=== PATIENT | male | born 1960 | race American Indian/Alaskan Native ===

== ENCOUNTER 2016-05-07 00:33 | Emergency (ER) | payer OTHER ==
[2016-05-07 01:29] LABS: Basophils % (Auto) 0.6 % (0.0-1.8); Eosinophils % (Auto) 0.1 % (0.0-4.3); Hematocrit 44.4 % (35.5-45.6); Hemoglobin 14.9 gm/dl (11.8-15.2); Mean Corpuscular HGB Conc 34 % (32-34); Mean Corpuscular Hemoglobin 31 pg (28-32); Mean Corpuscular Volume 92 fl (84-94); Platelet Count 169 K/mm3 (140-440); Red Blood Count 4.81 M/mm3 (3.65-5.03); Red Cell Distribution Width 13.5 % (13.2-15.2); White Blood Count 8.8 K/mm3 (4.5-11.0)
[2016-05-07 01:41] LABS: Anion Gap 19 mmol/L; Blood Urea Nitrogen 14 mg/dL (9-20); Calcium 8.6 mg/dL (8.4-10.2); Carbon Dioxide 22 mmol/L (22-30); Glucose 136 mg/dL (75-100); Sodium 140 mmol/L (137-145)
[2016-05-07 02:04] LABS: INR 1.1 (0.87-1.13)
[2016-05-07 02:05] LABS: Partial Thromboplastin Time 28.3 Sec. (24.2-36.6)
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
[2016-05-07 08:13] VITALS: BP 144/97
[2016-05-07 09:41] LABS: Bilirubin,Urine NEG (Negative); Blood,Urine NEG (Negative); Ketones,Urine NEG (Negative); Leukocyte Esterase,Urine NEG (Negative); Mucus,Urine FEW /HPF; Nitrite,Urine NEG (Negative); Protein,Urine <15 mg/dL mg/dL (Negative); RBC,Urine < 1.0 /HPF (0.0-6.0); Urobilinogen,Urine < 2.0 mg/dL (<2.0)
[2016-05-07] MEDS ORDERED: TRIMOX PO ONE (10:31)
[2016-05-07] MEDS ORDERED: MOTRIN PO ONE (10:31)
--- NOTE | 2016-05-07 10:32 | Emergency Department Report ---
ED GI Bleed HPI - General Chief complaint: Upper Respiratory Infection Stated complaint: FLU LIKE SYMPTOMS Time Seen by Provider: 05/07/16 10:12 Source: patient Mode of arrival: Ambulatory Limitations: No Limitations - History of Present Illness Severity scale (0 -10): 0 - Related Data Allergies Allergy/AdvReac Type Severity Reaction Status Date / Time No Known Allergies Allergy Verified 05/07/16 00:57 ED Review of Systems ROS: Stated complaint: FLU LIKE SYMPTOMS Other details as noted in HPI ED Past Medical Hx - Past Medical History Previous Medical History?: Yes Hx CVA: Yes Additional medical history: brain anerusim - Surgical History Past Surgical History?: No ED Physical Exam - General Limitations: No Limitations ED Course Vital Signs 05/07/16 05/07/16 05/07/16 00:53 08:00 08:10 Temperature 98.4 F Pulse Rate 92 H Respiratory 20 Rate Blood Pressure 134/94 144/97 Blood Pressure [Left] O2 Sat by Pulse 99 100 98 Oximetry 05/07/16 05/07/16 05/07/16 08:12 08:15 08:20 Temperature 98.9 F Pulse Rate 87 Respiratory 16 16 Rate Blood Pressure 144/97 Blood Pressure 144/97 [Left] O2 Sat by Pulse 100 100 100 Oximetry 05/07/16 05/07/16 05/07/16 08:30 08:40 08:50 Temperature Pulse Rate Respiratory Rate Blood Pressure 144/97 144/97 144/97 Blood Pressure [Left] O2 Sat by Pulse 100 99 98 Oximetry 05/07/16 09:00 Temperature Pulse Rate Respiratory Rate Blood Pressure 144/97 Blood Pressure [Left] O2 Sat by Pulse 98 Oximetry ED Medical Decision Making - Lab Data Result diagrams: 05/07/16 01:15 05/07/16 01:15 Critical care attestation.: If time is entered above; I have spent that time in minutes in the direct care of this critically ill patient, excluding procedure time. ED Disposition Condition: Stable Referrals: PRIMARY CARE, [Primary Care Provider] - 3-5 Days
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
--- NOTE | 2016-05-07 11:40 | XRay Report ---
CHEST 2 VIEWS INDICATION: Cough. COMPARISON: None similar. FINDINGS: PA and lateral chest radiographs demonstrate normal cardiomediastinal silhouette. Clear lungs. Intact bones. CONCLUSION: No acute disease in the chest. Thank you for the opportunity to participate in this patient's care.
== END 2016-05-07 12:08 | disposition home or self-care (01) ==
LOC: ED 00:33
DX: J32.9 Chronic sinusitis, unspecified (principal); I63.9 Cerebral infarction, unspecified
CPT/HCPCS: 36415; 70450; 71020; 80048; 81001; 84484; 85025; 85610; 85670; 85730; 93005; 93010

== ENCOUNTER 2019-05-12 17:29 | Emergency (ER) | payer OTHER ==
[2019-05-12 17:35] VITALS: BP 154/109
--- NOTE | 2019-05-12 20:30 | Event Note ---
ED Screening Note Date of service: 05/12/19 Time: 20:26 ED Screening Note: 58 y o male presents with prod cough iwth chest pain This initial assessment/diagnostic orders/clinical plan/treatment(s) is/are subject to change based on patients health status, clinical progression and re-assessment by fellow clinical providers in the ED. Further treatment and workup at subsequent clinical providers discretion. Patient/guardian urged not to elope from the ED as their condition may be serious if not clinically assessed and managed. Initial orders include: xcxacc eval
--- NOTE | 2019-05-12 21:47 | XRay Report ---
CHEST 2 VIEWS INDICATION / CLINICAL INFORMATION: pain. COMPARISON: None available. FINDINGS: SUPPORT DEVICES: None. HEART / MEDIASTINUM: No significant abnormality. LUNGS / PLEURA: No significant pulmonary or pleural abnormality. No pneumothorax. ADDITIONAL FINDINGS: No significant additional findings. IMPRESSION: 1. No acute findings. Signer Name: Anastasia Hwang MD Signed: 05/12/2019 9:43 PM Workstation Name: [id number]
[2019-05-12] MEDS ORDERED: predniSONE 20 MG TAB PO ONE (21:52)
--- NOTE | 2019-05-12 21:56 | Emergency Department Report ---
- General Chief Complaint: Upper Respiratory Infection Stated Complaint: COLD SYMPTOMS Source: patient Mode of arrival: Ambulatory Limitations: No Limitations - History of Present Illness Initial Comments: Patient is a 58-year-old -Stateless male with no past medical history presents to the ED with complaint of acute onset persistent nasal and sinus congestion, frontal sinus pressure and headache, cough with yellow phlegm, diffuse body aches and pains for the last 5 days worse in the last 2 days. Patient denies dizziness, chest pain, shortness of breath, abdominal pain, sore throat, nausea, vomiting, fever, chills, dysuria, urinary frequency and urgency or change in vision and syncope. MD Complaint: cough, rhinorrhea, nasal congestion, sinus pain -: Sudden, days(s) (5) Severity: moderate, severe Severity scale (0 -10): 6 Quality: sharp, aching Consistency: constant Improves With: nothing Context: sick contacts Associated Symptoms: denies other symptoms, myalgias, headache, rhinorrhea, nasal congestion, cough. denies: fever, chills, diaphoresis, sore throat, stiff neck, chest pain, shortness of breath, abdominal pain, vomiting, diarrhea, dysuria, rash, weight loss, epistaxis, hoarseness, ear pain Treatments Prior to Arrival: none - Related Data Previous Rx's Medication Instructions Recorded Last Taken Type Amoxicillin [Trimox CAP] 500 mg PO Q8H #21 capsule 05/07/16 Unknown Rx Fluticasone [Flonase] 1 spray NS QDAY #1 bottle 05/07/16 Unknown Rx Amoxicillin/Potassium Clav 1 each PO Q12H #20 tablet 05/12/19 Unknown Rx [Augmentin 875-125 Tablet] Benzonatate [Tessalon Perles] 100 mg PO Q8HR #30 capsule 05/12/19 Unknown Rx Cetirizine HCl [Zyrtec 10mg tab] 10 mg PO DAILY #20 tablet 05/12/19 Unknown Rx Ibuprofen [Motrin 600 MG tab] 600 mg PO Q8H PRN #30 tablet 05/12/19 Unknown Rx methylPREDNISolone [Medrol 4MG 4 mg PO DAILY #21 tab.ds.pk 05/12/19 Unknown Rx DOSEPAK (21 tabs)] Allergies Allergy/AdvReac Type Severity Reaction Status Date / Time No Known Allergies Allergy Verified 05/07/16 00:57 ED Review of Systems ROS: Stated complaint: COLD SYMPTOMS Other details as noted in HPI Constitutional: malaise. denies: chills, fever Eyes: denies: eye pain, eye discharge, vision change ENT: congestion, other (Frontal sinus pressure and headache). denies: ear pain, throat pain Respiratory: cough. denies: shortness of breath, SOB with exertion, wheezing Cardiovascular: denies: chest pain, palpitations Endocrine: no symptoms reported Gastrointestinal: denies: abdominal pain, nausea, vomiting, diarrhea, hematemesis, hematochezia Genitourinary: denies: urgency, dysuria Musculoskeletal: arthralgia, myalgia. denies: back pain, joint swelling Skin: denies: rash, lesions Neurological: headache. denies: weakness, paresthesias Psychiatric: denies: anxiety, depression Hematological/Lymphatic: denies: easy bleeding, easy bruising ED Past Medical Hx - Past Medical History Previous Medical History?: Yes Hx CVA: Yes Additional medical history: brain anerusim - Surgical History Past Surgical History?: No - Social History Smoking Status: Never Smoker Substance Use Type: Marijuana - Medications Home Medications: Home Medications Medication Instructions Recorded Confirmed Last Taken Type Amoxicillin [Trimox CAP] 500 mg PO Q8H #21 capsule 05/07/16 Unknown Rx Fluticasone [Flonase] 1 spray NS QDAY #1 bottle 05/07/16 Unknown Rx Amoxicillin/Potassium Clav 1 each PO Q12H #20 tablet 05/12/19 Unknown Rx [Augmentin 875-125 Tablet] Benzonatate [Tessalon Perles] 100 mg PO Q8HR #30 capsule 05/12/19 Unknown Rx Cetirizine HCl [Zyrtec 10mg tab] 10 mg PO DAILY #20 tablet 05/12/19 Unknown Rx Ibuprofen [Motrin 600 MG tab] 600 mg PO Q8H PRN #30 tablet 05/12/19 Unknown Rx methylPREDNISolone [Medrol 4MG 4 mg PO DAILY #21 tab.ds.pk 05/12/19 Unknown Rx DOSEPAK (21 tabs)] ED Physical Exam - General Limitations: No Limitations General appearance: alert, in no apparent distress - Head Head exam: Present: atraumatic, normocephalic, normal inspection - Eye Eye exam: Present: normal appearance, PERRL, EOMI Pupils: Present: normal accommodation - ENT ENT exam: Present: normal orophraynx, mucous membranes moist, TM's normal bilaterally, normal external ear exam, other (Grossly congested nasal passages; palpable frontal and maxillary sinus tenderness) - Neck Neck exam: Present: normal inspection, full ROM. Absent: tenderness, lymphadenopathy - Respiratory Respiratory exam: Present: normal lung sounds bilaterally. Absent: respiratory distress, wheezes, chest wall tenderness, accessory muscle use, prolonged expiratory - Cardiovascular Cardiovascular Exam: Present: regular rate, normal rhythm, normal heart sounds. Absent: systolic murmur, diastolic murmur, rubs, gallop - GI/Abdominal GI/Abdominal exam: Present: soft, normal bowel sounds. Absent: tenderness, guarding, rebound, hyperactive bowel sounds - Extremities Exam Extremities exam: Present: normal inspection, full ROM, normal capillary refill - Back Exam Back exam: Present: normal inspection, full ROM. Absent: tenderness, CVA tenderness (R), CVA tenderness (L), muscle spasm, paraspinal tenderness, vertebral tenderness - Neurological Exam Neurological exam: Present: alert, oriented X3, CN II-XII intact, normal gait, reflexes normal - Psychiatric Psychiatric exam: Present: normal affect, normal mood - Skin Skin exam: Present: warm, dry, intact, normal color. Absent: rash ED Course Vital Signs 05/12/19 05/12/19 17:34 20:25 Temperature 98.4 F 98.4 F Pulse Rate 78 78 Respiratory 18 18 Rate Blood Pressure 154/109 Blood Pressure 154/109 [Right] O2 Sat by Pulse 97 100 Oximetry ED Medical Decision Making - Radiology Data Radiology results: report reviewed, image reviewed Chest x-ray shows no acute cardiopulmonary abnormalities or pneumonitis. - Medical Decision Making This is a 58-year-old male who presented to the ED with frontal sinus pressure and headache, nasal and sinus congestion, cough with yellow phlegm, diffuse body aches for the last 5 days worse in the last 2 days. In the ED, patient is alert and oriented x3 and is not in distress. Chest x-ray shows no acute cardiopulmonary abnormalities or pneumonitis. Patient was treated in the ED with oral steroid and discharged home on medications. Patient was advised to follow-up with his primary care physician in 5 to 7 days for reevaluation or return to the ED immediately if symptoms get worse. - Differential Diagnosis Pneumonia; Sinusitis; URI; Flu; Bronchitis Critical care attestation.: If time is entered above; I have spent that time in minutes in the direct care of this critically ill patient, excluding procedure time. ED Disposition Clinical Impression: Acute upper respiratory infection, Sinus headache Acute bronchitis Qualifiers: Bronchitis organism: other organism Qualified Code(s): J20.8 - Acute bronchitis due to other specified organisms Acute frontal sinusitis Qualifiers: Recurrence: non-recurrent Qualified Code(s): J01.10 - Acute frontal sinusitis, unspecified Disposition: - TO HOME OR SELFCARE Is pt being admited?: No Does the pt Need Aspirin: No Condition: Stable Instructions: Acute Bronchitis (ED), Upper Respiratory Infection (ED), Acute Bacterial Rhinosinusitis (ED) Additional Instructions: Take medications with food, drink plenty of fluids and follow-up with your primary care physician in 7 to 10 days for reevaluation. Return to the ED immediately if symptoms get worse. Prescriptions: Amoxicillin/Potassium Clav [Augmentin 875-125 Tablet] 1 each PO Q12H #20 tablet methylPREDNISolone [Medrol 4MG DOSEPAK (21 tabs)] 4 mg PO DAILY #21 tab.ds.pk Ibuprofen [Motrin 600 MG tab] 600 mg PO Q8H PRN #30 tablet PRN Reason: Pain Benzonatate [Tessalon Perles] 100 mg PO Q8HR #30 capsule Cetirizine HCl [Zyrtec 10mg tab] 10 mg PO DAILY #20 tablet Referrals: [facility] [Outside] - 3-5 Days Forms: Work/School Release Form(ED) Time of Disposition: 21:55 Print Language: WELSH
== END 2019-05-12 22:30 | disposition home or self-care (01) ==
LOC: ED 17:29
DX: J01.10 Acute frontal sinusitis, unspecified (principal); J20.9 Acute bronchitis, unspecified; F12.10 Cannabis abuse, uncomplicated; Z79.1 Long term (current) use of non-steroidal anti-inflammatories (NSAID); Z86.73 Personal history of transient ischemic attack (TIA), and cerebral infarction without residual deficits; Z79.2 Long term (current) use of antibiotics; Z79.899 Other long term (current) drug therapy
CPT/HCPCS: 71046; 99283; J7512

== ENCOUNTER 2020-06-25 15:12 | Emergency (ER) | payer OTHER ==
[2020-06-25 15:42] VITALS: BP 136/94
--- NOTE | 2020-06-25 17:51 | Emergency Department Report ---
- General Chief Complaint: Upper Respiratory Infection Stated Complaint: COLD Time Seen by Provider: 06/25/20 17:35 Source: patient Mode of arrival: Ambulatory Limitations: No Limitations - History of Present Illness Initial Comments: 59-year-old male with no significant past history presents to the ER today with complaint of flulike symptoms. Patient states that he symptoms started about 3 days ago patient reports generalized body aches, productive cough with yellow sputum, rhinorrhea, nasal congestion, mild intermittent wheezing and decreased appetite. He states that he felt like he had decreased taste and smell. He states that he went and got a PCR COVID-19 test that same , and on Friday got the results and it was negative. Denies any GI or symptoms. Reports a history of childhood asthma. He denies tobacco use. He denies any apparent ill contacts or recent travel. MD Complaint: cough, rhinorrhea, nasal congestion -: days(s) (3) - Related Data Previous Rx's Medication Instructions Recorded Last Taken Type Cetirizine HCl [Zyrtec 10mg tab] 10 mg PO DAILY #20 tablet 05/12/19 Unknown Rx Azithromycin [Zithromax Z-JAQUELINE] 0 mg PO DAILY #1 pack 06/25/20 Unknown Rx Benzonatate [Tessalon Perles] 100 mg PO Q8HR #30 capsule 06/25/20 Unknown Rx Fluticasone [Flonase] 1 spray NS QDAY #1 bottle 06/25/20 Unknown Rx Ibuprofen [Motrin 600 MG tab] 600 mg PO Q8H PRN #30 tablet 06/25/20 Unknown Rx Allergies Allergy/AdvReac Type Severity Reaction Status Date / Time No Known Allergies Allergy Verified 06/25/20 15:42 ED Review of Systems ROS: Stated complaint: COLD Other details as noted in HPI Comment: All other systems reviewed and negative Constitutional: denies: chills, diaphoresis, fever, malaise, weakness Eyes: denies: eye pain, eye discharge, vision change ENT: throat pain (Mild), congestion, other (Rhinorrhea). denies: ear pain, dental pain, hearing loss, epistaxis Respiratory: cough, wheezing (Mild intermittent). denies: shortness of breath, SOB with exertion, SOB at rest Cardiovascular: denies: chest pain, palpitations Gastrointestinal: denies: abdominal pain, nausea, diarrhea, constipation, hematemesis, hematochezia Genitourinary: denies: urgency, dysuria Musculoskeletal: joint swelling, arthralgia, myalgia Skin: denies: rash, lesions, change in color, change in hair/nails, pruritus Neurological: denies: headache, weakness, paresthesias Psychiatric: denies: anxiety, depression, auditory hallucinations, visual hallucinations, homicidal thoughts, suicidal thoughts Hematological/Lymphatic: denies: as per HPI, easy bleeding, easy bruising, swollen glands ED Past Medical Hx - Past Medical History Hx CVA: Yes Additional medical history: brain anerusim - Social History Smoking Status: Never Smoker Substance Use Type: None - Medications Home Medications: Home Medications Medication Instructions Recorded Confirmed Last Taken Type Cetirizine HCl [Zyrtec 10mg tab] 10 mg PO DAILY #20 tablet 05/12/19 Unknown Rx Azithromycin [Zithromax Z-JAQUELINE] 0 mg PO DAILY #1 pack 06/25/20 Unknown Rx Benzonatate [Tessalon Perles] 100 mg PO Q8HR #30 capsule 06/25/20 Unknown Rx Fluticasone [Flonase] 1 spray NS QDAY #1 bottle 06/25/20 Unknown Rx Ibuprofen [Motrin 600 MG tab] 600 mg PO Q8H PRN #30 tablet 06/25/20 Unknown Rx ED Physical Exam - General Limitations: No Limitations General appearance: alert, in no apparent distress - Head Head exam: Present: atraumatic, normocephalic, normal inspection - Eye Eye exam: Present: normal appearance, PERRL, EOMI Pupils: Present: normal accommodation - ENT ENT exam: Present: normal exam, mucous membranes moist, TM's normal bilaterally, other (Mild tenderness to palpation to the maxillary sinuses) - Neck Neck exam: Present: normal inspection, meningismus, full ROM - Respiratory Respiratory exam: Present: normal lung sounds bilaterally. Absent: respiratory distress - Cardiovascular Cardiovascular Exam: Present: regular rate, normal rhythm, normal heart sounds - GI/Abdominal GI/Abdominal exam: Present: soft. Absent: distended, tenderness, guarding, rebound - Back Exam Back exam: Present: full ROM - Neurological Exam Neurological exam: Present: alert, oriented X3, CN II-XII intact, normal gait - Psychiatric Psychiatric exam: Present: normal affect, normal mood - Skin Skin exam: Present: intact ED Course Vital Signs 06/25/20 15:35 Temperature 98.3 F Pulse Rate 83 Respiratory 18 Rate Blood Pressure 136/94 O2 Sat by Pulse 98 Oximetry ED Medical Decision Making - Medical Decision Making The patient is resting comfortably, is alert and in no distress. The patient has normal mental status and is neurologically intact. The patient appears well and and there is no significant dehydration. There is no respiratory distress and no signs of systemic toxicity. The history, exam, and current condition do not demonstrate an infectious process such as meningitis, severe pneumonia, retropharyngeal abscess, epiglottitis, sepsis or other serious bacterial infection requiring further testing, treatment, consultation or admission at this time. His vital signs have been stable. Discussed suspected diagnosis and treatment plan with patient. The patient's condition is stable and appropriate for discharge. The patient will pursue further outpatient evaluation with the primary care physician or other designated. Critical care attestation.: If time is entered above; I have spent that time in minutes in the direct care of this critically ill patient, excluding procedure time. ED Disposition Clinical Impression: Flu-like symptoms, Sinusitis Disposition: DC-01 TO HOME OR SELFCARE Is pt being admited?: No Does the pt Need Aspirin: No Condition: Stable Instructions: Sinusitis, Adult, Viral Illness, Adult Additional Instructions: Take the medications as prescribed. Drink lots of fluids. I recommend that you take multivitamin daily. Follow up with PCP. Return to ED if worse. Prescriptions: Fluticasone [Flonase] 1 spray NS QDAY #1 bottle Ibuprofen [Motrin 600 MG tab] 600 mg PO Q8H PRN #30 tablet PRN Reason: Pain Benzonatate [Tessalon Perles] 100 mg PO Q8HR #30 capsule Azithromycin [Zithromax Z-JAQUELINE] 0 mg PO DAILY #1 pack Referrals: KOFFI REID MD [Staff Physician] - 3-5 Days Forms: Work/School Release Form(ED) Time of Disposition: 17:53
== END 2020-06-25 18:05 | disposition home or self-care (01) ==
LOC: ED 15:12
DX: J32.9 Chronic sinusitis, unspecified (principal); Z86.73 Personal history of transient ischemic attack (TIA), and cerebral infarction without residual deficits; Z79.1 Long term (current) use of non-steroidal anti-inflammatories (NSAID); Z79.2 Long term (current) use of antibiotics; Z79.899 Other long term (current) drug therapy
CPT/HCPCS: 99282

== ENCOUNTER 2021-05-03 23:10 | Emergency (ER) | payer SELFPAY ==
[2021-05-04] MEDS ORDERED: ACETAMINOPHEN 325 MG TAB PO ONE (02:32)
[2021-05-04] MEDS ORDERED: IBUPROFEN 400 MG TAB PO ONE (02:32)
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
[2021-05-04 04:01] VITALS: BP 149/102
== END 2021-05-04 04:01 | disposition home or self-care (01) ==
LOC: ED 23:10
DX: M25.511 Pain in right shoulder (principal); M54.50 Low back pain, unspecified; V89.2XXA Person injured in unspecified motor-vehicle accident, traffic, initial encounter; Y93.89 Activity, other specified; Y92.488 Other paved roadways as the place of occurrence of the external cause; Y99.8 Other external cause status
CPT/HCPCS: 99282